=== PATIENT | female | born 1975 | race Caucasian/White ===

== ENCOUNTER 2020-10-11 11:52 | Emergency (ER) | payer OTHER ==
[~2020-10-11] VITALS: Ht 157.5 cm; Wt 43.1 kg
[~2020-10-11 11:52] MED LIST: FLEXERIL PO; TORADOL 10 MG T10 MG PO; ZOFRAN ODT4 MG PO
[2020-10-11 12:36] LABS: ABSOLUTE LYMPHOCYTES 0.8 thou/uL (0.8-5.3); ABSOLUTE MONOCYTES 0.6 thou/uL (0.0-1.2); ABSOLUTE NEUTROPHILS 5.1 thou/uL (1.6-8.1); BASOPHILS 0.3 %; EOSINOPHILS 0.3 %; HEMATOCRIT 32.8 % (37.0-47.0); HEMOGLOBIN 10.9 gm/dL (12.0-15.0); LYMPHOCYTES 12.8 %; MCH 27.2 pg (26.0-34.0); MCHC 33.2 g/dL (28.0-37.0); MONOCYTES 9.5 %; MPV 7.5 fl. (7.2-11.1); NUCLEATED RBCS 0 /100WBC; PLATELET COUNT* 259 thou/uL (150-400); POLYS 77.1 %; RDW-CV 13.8 % (10.5-14.5); WBC 6.6 thou/uL (4.0-11.0)
[2020-10-11 12:45] LABS: POTASSIUM 4.2 mmol/L (3.5-5.1)
[2020-10-11 12:46] LABS: CALCIUM 14.7 mg/dL (8.5-10.1)
[2020-10-11 12:47] LABS: URINE BILIRUBIN NEGATIVE (Negative); URINE BLOOD TRACE (Negative); URINE CLARITY CLEAR; URINE COLOR YELLOW; URINE GLUCOSE-RANDOM NEGATIVE (Negative); URINE KETONES TRACE (Negative); URINE LEUKOCYTES-REFLEX NEGATIVE (Negative); URINE NITRITE-REFLEX NEGATIVE (Negative); URINE PROTEIN NEGATIVE (Negative); URINE SPECIFIC GRAVITY >= 1.030 (1.005-1.030)
[2020-10-11 12:49] LABS: ALBUMIN 3.4 g/dL (3.4-5.0); TOTAL BILIRUBIN 0.9 mg/dL (<0.1-1.0); TOTAL PROTEIN 7.6 g/dL (6.4-8.2)
--- NOTE | 2020-10-11 16:46 | EKG ---
[place] [address] ELECTROCARDIOGRAM REPORT Name: WILTON CABRERA Room: [facility]#: [id number] Admission: 10/11/20 Attend Phys: Discharge: Date of : 73 Date of Service: 10/11/20 1244 Report #: [id number] THIS REPORT FOR: //name// [facility] ED Test Date: 2020-10-11 Test Time: 12:44:20 Pat Name: WILTON CABRERA Department: Room: Gender: Director Of Cardiology: [facility] : 1975 Requested By: Rachel Guerrero Order Number: [id number] MD: Himanshu Arana Measurements Intervals [place] Rate: 83 P: 48 LA: 127 QRS: 44 QRSD: 83 T: 39 QT: 348 QTc: 409 Interpretive Statements Sinus rhythm Borderline low voltage, extremity leads No previous ECG available for comparison Electronically Signed On 10-11-2020 16:46:07 CDT by Himanshu Arana [email or web address] <ELECTRONICALLY SIGNED> By: Himanshu Arana MD, [facility] 10/11/20 1646 1244 1244 Himanshu Arana MD, FACC /EPI
[2020-10-11 17:55] VITALS: BP 148/91
== END 2020-10-11 17:55 | disposition short-term general hospital (02) ==
LOC: M.ERS 11:52
PROVIDERS: Nurse Practitioner Family
DX: E83.52 Hypercalcemia (principal); C78.6 Secondary malignant neoplasm of retroperitoneum and peritoneum; K76.89 Other specified diseases of liver; N83.8 Other noninflammatory disorders of ovary, fallopian tube and broad ligament; Z20.822 Contact with and (suspected) exposure to COVID-19